=== PATIENT | female | born 1960 | race African-American/Black ===

== ENCOUNTER 2025-03-08 03:29 | Emergency (ER) | payer OTHER ==
[~2025-03-08] VITALS: Ht 167.6 cm; Wt 127.3 kg
[2025-03-08 04:30] VITALS: PULSE 67; RESP 13; O2SAT 100
[2025-03-08 05:27] LABS: Hematocrit 44.7 % (36.0-46.0); Hemoglobin 14.8 g/dL (12.2-16.2); Mean Corpuscular Hemoglobin 32.5 pg (28.0-32.0); Mean Corpuscular Volume 97.8 fL (80.0-100.0); Nucleated Red Blood Cells % 0.2 %
--- NOTE | 2025-03-08 05:31 | ED.PDOC ---
History of Present Illness HPI Comments 64 year old female presents to the ED via EMS with a chief complaint of syncope. Per EMS, patient was at work, experienced syncopal episode, was caught by coworkers and was eased on the ground. Patient states she does not recall events, she was walking, woke up on the floor. EMS states patient had positive o rthostatic hypotension, BS was 209. PMHx CHF, COPD, asthma, HTN. Denies head injury, nausea, vomiting, diarrhea, abdominal pain, chest pain, shortness of breath, fevers, chills, cough, congestion. No other symptoms or modifying factors present at this time. DR. DAMON NOTE: The care of this patient was signed out to me by Dr. Luque awaiting to speak to the [facility] physician to transfer the patient. I went to evaluate the patient. She was hypertensive. I ordered the blood pressure medication. Patient was found with the acute renal insufficiency. A arrange for the patient to be transferred to [facility]. Patient left against medical advice him said that she will drive herself with the to go to [facility] directly herself. Patient denies any active chest pain. Chief Complaint: Syncope Time Seen by MD: 05:15 Reviewed Notes: Medications, Allergies Allergies: Coded Allergies: No Known Drug Allergy (Verified Allergy, Unknown, 04/24/16) Information Source: Patient, Emergency Med Personnel Mode of Arrival: EMS Severity: Moderate Timing: Hours Duration: Since onset Prehospital treatment: None Past Medical History PAST MEDICAL HISTORY: Asthma, CHF, COPD, HTN Past Medical History (Other): brain aneurysm Surgical History: Appendectomy Surgical History (Other): brain an CLIMATE CHANGE RISK ASSESSOR History: No Pertinent CLIMATE CHANGE RISK ASSESSOR History Family History Family History: Unobtainable Social History Smoker: Non-Smoker, Secondhand Drugs: Denies Drug Use Lives In: Home Constitutional: denies: chills, diaphoresis, fatigue, fever, malaise, sweats, weakness, others EENTM: denies: blurred vision, double vision, ear bleeding, ear discharge, ear drainage, ear pain, ear ringing, eye pain, eye redness, hearing loss, mouth pain, mouth swelling, nasal discharge, nose bleeding, nose congestion, nose pain, photophobia, tearing, throat pain, throat swelling, voice changes, others Respiratory: denies: cough, hemoptysis, orthopnea, SOB at rest, shortness of breath, SOB with excertion, stridor, wheezing, others Cardiovascular: denies: chest pain, dizzy spells, diaphoresis, Dyspnea on exertion, edema, irregular heart beat, left arm pain, lightheadedness, palpitations, PND, syncope, others Gastrointestinal: denies: abdomen distended, abdominal pain, blood streaked bowels, constipated, diarrhea, dysphagia, difficulty swallowing, hematemesis, melena, nausea, poor appetite, poor fluid intake, rectal bleeding, rectal pain, vomiting, others Genitourinary: denies: abnormal vagina bleeding, burning, dyspareunia, dysuria, flank pain, frequency, hematuria, incontinence, pain, , vagina discharge, urgency, others Neurological: reports: others (syncope); denies: dizziness, fainting, headache, left sided numbness, left sided weakness, numbness, paresthesia, pre-existing deficit, right sided numbness, right sided weakness, seizure, speech problems, tingling, tremors, weakness Musculoskeletal: denies: back pain, gout, joint pain, joint swelling, muscle pain, muscle stiffness, neck pain, others Integumetry: denies: bruises, change in color, change in hair/nails, dryness, laceration, lesions, lumps, rash, wounds, others Allergic/Immunocompromised: denies: Difficulty Healing, Frequent Infections, Hives, Itching, others Hematologic/Lymphatic: denies: anemia, blood clots, easy bleeding, easy bruising, swollen glands, others Endocrine: denies: excessive hunger, excessive sweating, excessive thirst, excessive urination, flushing, intolerance to cold, intolerance to heat, unexplained weight gain, unexplained weight loss, others Psychiatric: denies: anxiety, bipolar disorder, depression, hopeless, panic disorder, schizophrenia, sleepless, suicidal, others All Other Systems: Reviewed and Negative Physical Exam General Appearance: No Apparent Distress, Normal HEENT: Normal ENT Inspection, Pharynx Normal, TMs Normal Neck: Full Range of Motion, Non-Tender, Normal, Normal Inspection Respiratory: Chest Non-Tender, Lungs Clear, No Accessory Muscle Use, No Respi ratory Distress, Normal Breath Sounds Cardiovascular: No Edema, No JVD, No Murmur, No Gallop, Normal Peripheral Pulses, Regular Rate/Rhythm Breast Exam: Deferred Gastrointestinal: No Organomegaly, Non Tender, No Pulsatile Mass, Normal Bowel Sounds, Soft Genitalia: Deferred Pelvic: Deferred Rectal: Deferred Extremities: No calf tenderness, Normal capillary refill, Normal inspection, Normal range of motion, Non-tender, No pedal edema Musculoskeletal : Apperance: Normal Neurologic: Alert, health informatics specialist II-XII nml as Tested, No Motor Deficits, Normal Affect, Normal Mood, No Sensory Deficits Cerebellar Function: Normal Reflexes: Normal Skin: Dry, Normal Color, Warm Lymphatic: No Adenopathy Was a procedure done? Was a procedure done?: No Differential Dx Considerations may include: Anemia, CVA, dehydration, dysrhythmia, electrolyte imbalance, encephalopathy, Guillain-Radiant, hypoglycemia, hypotension, hypovolemia, myasthenia gravis, PA, pulmonary embolus, renal failure, respiratory failure, TIA, VPI, vertigo central, vertigo peripheral, vestibular neuronitis, X-Ray, Labs, Meds, VS Vital Signs Date Time Temp Pulse Resp B/P (MAP) Pulse Ox O2 Delivery O2 Flow Rate FiO2 03/08/25 06:58 98.1 78 16 138/76 (96) 98 98.1 03/08/25 04:30 67 13 100 Room Air* 0 21 03/08/25 04:30 98.1 67 13 164/84 (110) 100 98.1 03/08/25 03:40 98.0 72 16 128/77 (94) 96 98.0 Lab Test 03/08/25 07:07 03/08/25 05:40 03/08/25 05:02 Range/Units Troponin I High Sensitivity 36 *H 30 </=34 ng/L Urine Color Light-yellow Yellow Urine Clarity Clear Clear Urine pH 5.5 5.0-9.0 Urine Specific [place] 1.021 1.001-1.035 Urine Protein Negative Negative Urine Ketones Negative Negative Urine Blood Negative Negative /uL Urine Nitrite Negative Negative Urine Bilirubin Negative Negative Urine Urobilinogen Normal Negative mg/dL Urine Leukocyte Esterase Negative Negative /uL Urine RBC None seen 0 - 4 /hpf Urine Microscopic WBC 3 0-5 /HPF Urine Squamous Epithelial Cells Few <5 /hpf Urine Bacteria None seen None Seen /hpf Urine Hyaline Casts Mod 0 - 2 /lpf Urine Yeast (Budding) Occasional None Seen /hpf Urine Glucose Normal Normal mg/dL White Blood Count 9.1 4.4-10.8 10^3/uL Red Blood Count 4.57 4.0-5.20 10^6/uL Hemoglobin 14.8 12.2-16.2 g/dL Hematocrit 44.7 36.0-46.0 % Mean Corpuscular Volume 97.8 80.0-100.0 fL Mean Corpuscular Hemoglobin 32.5 H 28.0-32.0 pg Mean Corpuscular Hemoglobin Concent 33.2 32.0-36.0 g/dL Red Cell Distribution Width 14.5 H 11.8-14.3 % Platelet Count 250 140-450 10^3/uL Mean Platelet Volume 7.8 6.9-10.8 fL Neutrophils (%) (Auto) 65.4 37.0-80.0 % Lymphocytes (%) (Auto) 23.6 10.0-50.0 % Monocytes (%) (Auto) 8.6 0.0-12.0 % Eosinophils (%) (Auto) 1.7 0.0-7.0 % Basophils (%) (Auto) 0.7 0.0-2.0 % Neutrophils # (Auto) 6.0 1.6-8.6 10 ^3/uL Lymphocytes # (Auto) 2.2 0.4-5.4 10 ^3/uL Monocytes # (Auto) 0.8 0-1.3 10 ^3/uL Eosinophils # (Auto) 0.2 0-0.8 10 ^3/uL Basophils # (Auto) 0.1 0-0.2 10 ^3/uL Nucleated Red Blood Cells 0.2 % Sodium Level 136 136-145 mmol/L Potassium Level 4.2 3.5-5.1 mmol/L Chloride Level 103 98-107 mmol/L Carbon Dioxide Level 24 20-31 mmol/L Anion Gap 9 5-15 Blood Urea Nitrogen 33 H 9-23 mg/dL Creatinine 2.25 H 0.550-1.02 mg/dL Glomerular Filtration Rate Calc 24 >90 mL/min BUN/Creatinine Ratio 14.7 10.0-20.0 Serum Glucose 86 74-106 mg/dL Calcium Level 9.4 8.7-10.4 mg/dL [facility] [address] [facility] [address] Ph: [phone] DIAGNOSTIC IMAGING Diagnostic Imaging Report : [id number] Signed PATIENT: LUIS GONSALEZ ACCT: [id number] UNIT: [id number] : 1960 LOC: ER ROOM / BED: / AGE / SEX: 64 / F ADM STATUS: REG ER SERVICE [id number] ORDERING PHYSICIAN: KACEY LUQUE MD PROCEDURE(s): HWOCT - HEAD WITHOUT CONTRAST REASON: syncope ORDER NUMBER(s): [id number], ACCESSION NUMBER(s): [id number] EXAM: CT HEAD WITHOUT CONTRAST INDICATION: syncope TECHNIQUE: CT of the head without intravenous contrast. Coronal and sagittal reformatted images are submitted. Radiation Dose : 1. Head: CT Dose: CTDI volume is 67.4 mGy. Dose-length product is 1191.1 mGy*cm The dose indicators for CT are the volume Computed Tomography (CT) Dose Index (CTDIvol) and the Dose Length Product (DLP), and are measured in units of mGy and mGy-cm, respectively. These indicators are not patient dose, but values generated from the CT scanner acquisition factors. The report includes radiation exposure data for exposures received during this examination. All CT scans at this medical facility are performed using dose modulation techniques as appropriate to a performed exam including the following: Automated exposure control was utilized; adjustment of the MA and/or KV according to patient size; and use of iterative reconstruction technique. COMPARISON: None FINDINGS: There is no evidence of acute intracranial hemorrhage, extra-axial collection, mass effect, midline shift, herniation or hydrocephalus. 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 The ventricles, sulci and cisterns are age appropriate. The quinones-white differentiation is intact. The visualized paranasal sinuses and mastoid air cells are clear. No depressed calvarial fracture. The surrounding soft tissues are unremarkable. IMPRESSION: 1. No evidence of acute intracranial abnormality. ATED BY: LETICIA HOLBROOK MD DICTATED DATE/TIME: 03/08/25544 SIGNED BY: LETICIA HOLBROOK MD SIGNED DATE/TIME: 03/08/25544 CC: [place] [id number] Ph: [phone] DIAGNOSTIC IMAGING Diagnostic Imaging Report : [id number] Signed PATIENT: LUIS GONSALEZ ACCT: [id number] UNIT: [id number] : 1960 LOC: ER ROOM / BED: / AGE / SEX: 64 / F ADM STATUS: REG ER SERVICE 0506 ORDERING PHYSICIAN: KACEY LUQUE MD PROCEDURE(s): CXRP - CHEST PORTABLE REASON: syncope ORDER NUMBER(s): [id number], ACCESSION NUMBER(s): [id number] CHEST RADIOGRAPH Indication: syncope Technique: Single frontal view of the chest was obtained COMPARISON: None FINDINGS: Lines and Tubes: None Lungs: Clear Pleura: No effusion. No pneumothorax. Cardiomediastinal contours: Unremarkable Bones: Unremarkable IMPRESSION: No acute disease. ATED BY: RICHARD TORRE MD DICTATED DATE/TIME: 03/08/25534 SIGNED BY: RICHARD TORRE MD SIGNED DATE/TIME: 03/08/25534 CC: Time of 1ST Reevaluation: 05:45 Reevaluation 1ST: Unchanged Time of 2ND Reevaluation: 06:13 (The case was discussed with the [facility] admitting team (HPI, physical exam, labs and diagnostic tests that were available at the time of disposition, ED course, treatment plan) on the phone. They agreed to transfer the patient to their service by ALS for further evaluation and treatment. Dr. ROLDAN Authorization number is--[id number]) Patient Education/Counseling: Diagnosis, Treatment, Prognosis Family Education/Counseling: No Family Present Comments DR. DAMON NOTE: This patient was signed out to me by Dr. Patel stating that the patient is aw aiting to be transferred to [facility]. Patient presented with the above HPI.---syncope and collapse---workup was initiated. patient was found with the above mentioned diagnosis. the following medications were ordered: please refer to order lists of meds and tests obtained by myself Dr. Damon. Patient ED course and VS have been stabilized. Patient has been reassessed in the ED and remained in a stable condition. Pertinent incidental findings were discussed with the patient and/or family. Patient/family voices understanding and is agreeable with plan. Patient has been observed in the ED adequate length of time to insure improvement/stability. Escalation of care considered: Consideration of escalation to observation or admission I spoke with the [facility] physician who stated that the patient's creatinine obtained today is higher than her baseline and she appears to be in acute renal failure. Ejection fraction was 71% in 10 years ago. I ordered small fluid hydration 500 cc bolus. Patient with a essentially hypertensive but her orthostatics were performed and were unremarkable. I canceled hydralazine ordered. Patient denies any chest pain or shortness of breath. Patient was transferred to the medicine team for further evaluation and treatment of their presentation per insurance requirement to [facility]. All the reports of any imaging studies that were ordered by myself were reviewed by myself. On my evaluation of the patient, patient denies any chest pain or shortness of breath. Denies any active dizziness. She said this never happened before. The HPI suggest that there was no head injury. CT scan of the head was performed which was unremarkable and chest x-ray as well. SEPSIS Sepsis Screen Date sepsis recognized/suspect: Mar 08, 2025 Time Sepsis recognized/suspect: 458 Recent Procedure: No On Antibiotic Therapy: No Respiratory Rate >20: No Heart Rate >90: No Temp<36 C (96.8 F) or >38.3 C: No SBP <90 or MAP <65 mmHG: No New Acute Mental Status Change: No Is the patient on CPAP, BIPAP,: No Physician Orders Chest Portable (03/08/25 05:06) Head Without Contrast (03/08/25 05:06) Electrocardigram (03/08/25 06:06) Orthostatic Vital Signs (03/08/25 ) Imaging Transfer Request (03/08/25 06:22) Vital Signs Date Time Temp Pulse Resp B/P (MAP) Pulse Ox O2 Delivery O2 Flow Rate FiO2 03/08/25 06:58 98.1 78 16 138/76 (96) 98 98.1 03/08/25 04:30 67 13 100 Room Air* 0 21 03/08/25 04:30 98.1 67 13 164/84 (110) 100 98.1 03/08/25 03:40 98.0 72 16 128/77 (94) 96 98.0 Laboratory Tests Test 03/08/25 05:02 White Blood Count 9.1 10^3/uL (4.4-10.8) Departure 1 Departure Time of Disposition: 06:14 Impression: Primary Impression: Syncope and collapse Additional Impressions: Hypertensive urgency Acute renal failure Left against medical advice Disposition: 02 SHORT TERM HOSPITAL Admit to: Tele Condition: Guarded Discharged With: Self Critical Care Note Critical Care Time?: Yes (35 min-critical care time only) Stability Stability form required: No Heart Score Heart Score: Heart Score Response (Comments) Value History N/A 0 EKG N/A 0 Age N/A 0 Risk Factors N/A 0 Troponin N/A 0 Total 0 I personally scribed for KACEY LUQUE MD ([email or web address]) on 03/08/25 at 05:31. Electronically submitted by Syeda Shell ([email or web address]). KACEY LUQUE MD Mar 08, 2025 05:31 NAZARIO DAMON DO Mar 08, 2025 06:13
--- NOTE | 2025-03-08 05:38 | DVH ---
CHEST RADIOGRAPH Indication: syncope Technique: Single frontal view of the chest was obtained COMPARISON: None FINDINGS: Lines and Tubes: None Lungs: Clear Pleura: No effusion. No pneumothorax. Cardiomediastinal contours: Unremarkable Bones: Unremarkable IMPRESSION: No acute disease.
--- NOTE | 2025-03-08 05:48 | DVH ---
EXAM: CT HEAD WITHOUT CONTRAST INDICATION: syncope TECHNIQUE: CT of the head without intravenous contrast. Coronal and sagittal reformatted images are s ubmitted. Radiation Dose : 1. Head: CT Dose: CTDI volume is 67.4 mGy. Dose-length product is 1191.1 mGy*cm The dose indicators for CT are the volume Computed Tomography (CT) Dose Index (CTDIvol) and the Dose Length Product (DLP), and are measured in units of mGy and mGy-cm, respectively. These indicators are not patient dose, but values generated from the CT scanner acquisition factors. The report includes radiation exposure data for exposures received during this examination. All CT scans at this medical facility are performed using dose modulation techniques as appropriate to a performed exam including the following: Automated exposure control was utilized; adjustment of the MA and/or KV according to patient size; and use of iterative reconstruction technique. COMPARISON: None FINDINGS: There is no evidence of acute intracranial hemorrhage, extra-axial collection, mass effect, midline s hift, herniation or hydrocephalus. 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 The ventricles, sulci and cisterns are age appropriate. The quinones-white differentiation is intact. The visualized paranasal sinuses and mastoid air cells are clear. No depressed calvarial fracture. The surrounding soft tissues are unremarkable. IMPRESSION: 1. No evidence of acute intracranial abnormality.
--- NOTE | 2025-03-08 05:54 | ECG ---
[facility] Test Date: 2025-03-08 Test Time: 05:50:30 Pat Name: LUIS GONSALEZ Department: ED Room: Gender: F Air Brake Rigger: RIZWAN : 1960 Requested By: KACEY LUQUE Order Number: [id number] Reading MD: Measurements Intervals [place] Rate: 74 P: 32 CA: 188 QRS: 49 QRSD: 104 T: 76 QT: 417 QTc: 463 Interpretive Statements Sinus rhythm Probable left atrial enlargement Abnormal R-wave progression, late transition Please click the below link to view image of tracing.
[2025-03-08 06:01] LABS: Chloride 103 mmol/L (98-107); Potassium 4.2 mmol/L (3.5-5.1)
[2025-03-08 06:02] LABS: Anion Gap 9 (5-15); Carbon Dioxide 24 mmol/L (20-31)
[2025-03-08 06:03] LABS: Calcium 9.4 mg/dL (8.7-10.4)
[2025-03-08 06:04] LABS: Urine Budding Yeast OCCASIONAL /hpf (None Seen); Urine Protein, UAD Negative (Negative)
[2025-03-08 06:06] LABS: Sodium 136 mmol/L (136-145)
[2025-03-08 06:07] LABS: Glucose 86 mg/dL (74-106)
[2025-03-08 06:08] LABS: BUN/Creatinine Ratio 14.7 (10.0-20.0)
[2025-03-08 06:10] LABS: Blood Urea Nitrogen 33 mg/dL (9-23)
[2025-03-08 06:58] VITALS: BP 138/76; PULSE 78; RESP 16; TEMP 98.1; O2SAT 98
[2025-03-08] MEDS: hydrALAZINE HCL 20 MG/ML VL IV ONE (07:00)
[2025-03-08] MEDS: SODIUM CHLORIDE 0.9% 500 ML IV ONE (07:19)
== END 2025-03-08 08:00 | disposition left against medical advice (07) ==
LOC: ER 03:29 → EDBD 03:29 → EDUNIT# 03:29 → ER 08:00
DX: N17.9 Acute kidney failure, unspecified (principal); I16.0 Hypertensive urgency; I11.0 Hypertensive heart disease with heart failure; I50.9 Heart failure, unspecified; J44.9 Chronic obstructive pulmonary disease, unspecified; Z90.49 Acquired absence of other specified parts of digestive tract
CPT/HCPCS: 36415; 70450; 71045; 80048; 81001; 82947; 84484; 85025; 93005; 99291